=== PATIENT | male | born 1970 | race Caucasian/White ===

== ENCOUNTER 2021-06-09 16:48 | Inpatient (IN) | payer MEDICARE, OTHER ==
[~2021-06-09] VITALS: Ht 198.1 cm; Wt 138.8 kg
[2021-06-09 17:44] LABS: HEMOGLOBIN 17.3 gm/dl (14.0-17.5); RED BLOOD COUNT 5.48 M/UL (4.20-5.50); WHITE BLOOD COUNT 13.6 K/UL (4.5-11.0)
[2021-06-09 18:08] LABS: BUN/CREATININE RATIO 15 (0-10)
[2021-06-10 05:36] LABS: HEMOGLOBIN 16.7 gm/dl (14.0-17.5); RED BLOOD COUNT 5.38 M/UL (4.20-5.50); WHITE BLOOD COUNT 20.5 K/UL (4.5-11.0)
[2021-06-10 06:04] LABS: BUN/CREATININE RATIO 19 (0-10)
[2021-06-10] MEDS ORDERED: KLONOPIN0.5 MG PO (11:22)
[2021-06-10] MEDS ORDERED: ENDOCET 5-3251 EACH PO (11:23)
[2021-06-10] MEDS ORDERED: CRESTOR5 MG PO (11:24)
[2021-06-10] MEDS ORDERED: FLONASE 0.05% N16 GM (11:24)
[2021-06-10] MEDS ORDERED: OMEGA-3 ACID ETH1 GM PO (11:24)
[2021-06-11 04:12] LABS: HEMOGLOBIN 15.1 gm/dl (14.0-17.5)
[2021-06-11 04:16] LABS: RED BLOOD COUNT 4.82 M/UL (4.20-5.50); WHITE BLOOD COUNT 14.6 K/UL (4.5-11.0)
[2021-06-11 04:29] LABS: BUN/CREATININE RATIO 22 (0-10)
[2021-06-11] MEDS ORDERED: NITROGLYCERIN0.4 MG SL (10:21)
[2021-06-11] MEDS ORDERED: LISINOPRIL5 MG PO (10:21)
[2021-06-11] MEDS ORDERED: LOPRESSOR 25 MG25 MG PO (10:21)
[2021-06-11] MEDS ORDERED: BRILINTA 90 MG90 MG PO (10:21)
[2021-06-11] MEDS ORDERED: ATORVASTATIN CA80 MG PO (10:21)
[2021-06-11] MEDS ORDERED: ASPIRIN EC81 MG PO (10:21)
[2021-06-11] MEDS ORDERED: ISOSORBIDE MONO30 MG PO (10:21)
== END 2021-06-11 12:32 | disposition home or self-care (01) | DRG 247 ==
LOC: ER1 16:48 → CCU 19:07 → ZOBSOF 06-10 09:15 → PROG CARE 06-10 13:56
PROVIDERS: Emergency Medicine; Internal Medicine; ADMIT Internal Medicine Interventional Cardiology
PROC: 027035Z Dilation of Coronary Artery, One Artery with Two Drug-eluting Intraluminal Devices, Percutaneous Approach (ICD-10-PCS; principal; 2021-06-09)
PROC: B2111ZZ Fluoroscopy of Multiple Coronary Arteries using Low Osmolar Contrast (ICD-10-PCS; 2021-06-09)
PROC: 4A023N7 Measurement of Cardiac Sampling and Pressure, Left Heart, Percutaneous Approach (ICD-10-PCS; 2021-06-09)
PROC: B24BZZZ Ultrasonography of Heart with Aorta (ICD-10-PCS; 2021-06-10)
DX: I21.19 ST elevation (STEMI) myocardial infarction involving other coronary artery of inferior wall (principal); I10 Essential (primary) hypertension; E11.9 Type 2 diabetes mellitus without complications; Z20.822 Contact with and (suspected) exposure to COVID-19; F17.200 Nicotine dependence, unspecified, uncomplicated; M51.36 Other intervertebral disc degeneration, lumbar region; F41.9 Anxiety disorder, unspecified; J44.9 Chronic obstructive pulmonary disease, unspecified; K74.60 Unspecified cirrhosis of liver; G89.29 Other chronic pain; Z96.659 Presence of unspecified artificial knee joint; E78.5 Hyperlipidemia, unspecified; Z79.899 Other long term (current) drug therapy; Z79.82 Long term (current) use of aspirin; Z88.0 Allergy status to penicillin; Z88.1 Allergy status to other antibiotic agents; Z88.8 Allergy status to other drugs, medicaments and biological substances; Z90.49 Acquired absence of other specified parts of digestive tract; Z98.52 Vasectomy status; Z90.89 Acquired absence of other organs; Z98.890 Other specified postprocedural states; Z82.49 Family history of ischemic heart disease and other diseases of the circulatory system
CPT/HCPCS: ECHO; 36415; 80048; 80053; 80061; 82550; 82553; 82962; 83036; 83735; 83874; 84484; 85025; 85027; 85347; 85610; 85730; 93005; 93306; 97161; 99152; 99285; C1725; C1769; C1874; C1887; J0461; J1170; J1200; J1644; J2250; J2405; J2930; J3246; J7040; Q9965; U0002

== ENCOUNTER → 2022-02-17 | Outpatient (CLI) | payer MEDICARE, OTHER ==
[~2022-02-17] MED LIST: ASPIRIN EC81 MG PO; ATORVASTATIN CA80 MG PO; BRILINTA 90 MG90 MG PO; CRESTOR5 MG PO; ENDOCET 5-3251 EACH PO; FLONASE 0.05% N16 GM; ISOSORBIDE MONO30 MG PO; KLONOPIN0.5 MG PO; LISINOPRIL5 MG PO; LOPRESSOR 25 MG25 MG PO; NITROGLYCERIN0.4 MG SL; OMEGA-3 ACID ETH1 GM PO
== END ==
LOC: KOH-I 08:00
DX: K76.0 Fatty (change of) liver, not elsewhere classified (principal); Z90.49 Acquired absence of other specified parts of digestive tract
CPT/HCPCS: 76700